=== PATIENT | male | born 1955 | race Caucasian/White ===

== ENCOUNTER 2018-03-28 19:31 | Inpatient (IN) | payer OTHER ==
[2018-03-28] MEDS ORDERED: ADENOSINE 0 ML (19:43)
[2018-03-28 19:52] LABS: ADD MAN DIFF? NO
[2018-03-28] MEDS: DILTIAZEM 50 MG INJ IV (19:53)
[2018-03-28 20:00] LABS: BASOPHILS % 0.5 % (0.0-2.0); EOSINOPHILS # 0.3 10^3/ul (0.0-0.5); EOSINOPHILS % 4.4 % (0.0-7.0); HEMATOCRIT 37.2 % (42.0-52.0); HEMOGLOBIN 12.6 g/dl (14.0-18.0); LYMPHOCYTES # 1.6 10^3/ul (0.8-2.9); MEAN CORPUSCULAR HGB CONC 33.9 g/dl (32.0-37.0); MEAN CORPUSCULAR VOLUME 88.6 fl (82.0-101.0); MEAN PLATELET VOLUME 9.2 fl (7.4-10.4); MONOCYTE # 0.7 10^3/ul (0.3-0.9); MONOCYTES % 10.9 % (0.0-11.0); NEUTROPHIL # 3.8 10^3/ul (1.6-7.5); NEUTROPHILS % 58.3 % (39.0-77.0); PLATELET COUNT 205 10^3/UL (140-415); RED CELL DISTRIBUTION WIDTH 12.9 % (11.5-14.5)
[2018-03-28 20:00] LABS: WHITE BLOOD COUNT 6.5 10^3/ul (4.8-10.8)
[2018-03-28] MEDS: DILTIAZEM-D5W 125MG/125ML DRIP 125 ML IV ×2 (20:11→20:15)
[2018-03-28 20:16] LABS: INR 1.01; PROTIME 13.4 Sec (11.9-14.9)
[2018-03-28 20:17] LABS: PARTIAL THROMBOPLASTIN TIME 30.9 Sec (25.0-35.0)
[2018-03-28 20:19] LABS: ALANINE AMINOTRANSFERASE 33 IU/L (13-69); ALBUMIN/GLOBULIN RATIO 1.21; ALKALINE PHOSPHATASE 59 IU/L (42-121); ANION GAP 16 (8-16); ASPARTATE AMINO TRANSFERASE 27 IU/L (15-46); BILIRUBIN,INDIRECT 0.2 mg/dl (0-1.1); BILIRUBIN,TOTAL 0.2 mg/dl (0.2-1.3); BLOOD UREA NITROGEN 25 mg/dl (7-20); CALCIUM 10.2 mg/dl (8.4-10.2); CARBON DIOXIDE 24 mmol/L (21-31); CHLORIDE 108 mmol/L (97-110); CREATININE 1.38 mg/dl (0.61-1.24); GLUCOSE 154 mg/dl (70-220); MAGNESIUM 1.4 mg/dl (1.7-2.5); POTASSIUM 4.3 mmol/L (3.5-5.1); SODIUM 144 mmol/L (135-144); TOTAL PROTEIN 7.3 g/dl (6.1-8.1)
[2018-03-28 20:31] LABS: B-TYPE NATRIURETIC PEPTIDE 3810 PG/ML (0-125); TROPONIN-I 0.036 ng/ml (0.00-0.12)
[2018-03-29] MEDS ORDERED: DILTIAZEM-D5W 125MG/125ML DRIP 125 ML IV
[2018-03-29] MEDS: DILTIAZEM 50 MG INJ IV (00:27)
[2018-03-29] MEDS ORDERED: NACL 0.9% 3 ML SYG IV (00:30)
[2018-03-29] MEDS ORDERED: GLUCOSE GEL 15 GRAM TUBE BUCCAL (00:30)
[2018-03-29] MEDS ORDERED: GLUCAGON 1 MG INJ IM (00:30)
[2018-03-29] MEDS ORDERED: BISACODYL (EC) 5 MG TAB PO (00:30)
[2018-03-29] MEDS ORDERED: GLUCOSE GEL 15 GRAM TUBE PO ×2 (00:30)
[2018-03-29] MEDS ORDERED: DOCUSATE SODIUM 100 MG CAP PO (00:30)
[2018-03-29] MEDS ORDERED: MAGNESIUM HYDROXIDE 30ML CUP PO (00:30)
[2018-03-29] MEDS ORDERED: DEXTROSE 50% 50 ML SYRINGE IV ×2 (00:30)
[2018-03-29] MEDS: MAGNESIUM SULFATE 1 GM/D5W 100 ML IVPB (00:46)
[2018-03-29 00:56] LABS: HEMOGLOBIN A1C 5.8 % (0-5.9)
[2018-03-29] MEDS: RIVAROXABAN 20 MG TABLET PO ×2 (01:25→20:33)
[2018-03-29] MEDS: ACCU-CHEK XX (02:50)
[2018-03-29 02:51] LABS: CREATINE KINASE 228 IU/L (23-200)
[2018-03-29 03:02] LABS: CK INDEX 1.5; TROPONIN-I 0.037 ng/ml (0.00-0.12)
[2018-03-29 03:15] LABS: CK-MB 3.49 ng/ml (0.0-2.4)
[2018-03-29] MEDS: INSULIN ASPART [NOVOLOG] 3 ML PEN SC ×4 (08:20→20:33)
[2018-03-29 09:18] LABS: CREATINE KINASE 194 IU/L (23-200)
[2018-03-29 09:30] LABS: CK INDEX 1.7; TROPONIN-I 0.032 ng/ml (0.00-0.12)
[2018-03-29 09:31] LABS: CK-MB 3.23 ng/ml (0.0-2.4)
[2018-03-29 09:40] LABS: FREE T4 (FREE THYROXINE) 0.82 ng/dl (0.78-2.44)
[2018-03-29] MEDS: LISINOPRIL 5 MG TAB PO (18:12)
[2018-03-29] MEDS: ATORVASTATIN 20 MG TAB PO (20:32)
[2018-03-30] MEDS: ACCU-CHEK XX (02:00)
[2018-03-30] MEDS: SPIRONOLACTONE 25 MG TAB PO (08:05)
[2018-03-30] MEDS: LISINOPRIL 5 MG TAB PO (08:06)
[2018-03-30] MEDS: INSULIN ASPART [NOVOLOG] 3 ML PEN SC ×3 (08:07→18:05)
[2018-03-30 09:24] LABS: ADD MAN DIFF? NO
[2018-03-30 09:35] LABS: BASOPHILS % 0.6 % (0.0-2.0); EOSINOPHILS # 0.3 10^3/ul (0.0-0.5); EOSINOPHILS % 6.7 % (0.0-7.0); HEMATOCRIT 40.1 % (42.0-52.0); HEMOGLOBIN 13.5 g/dl (14.0-18.0); LYMPHOCYTES % 20.2 % (15.0-51.0); MEAN CORPUSCULAR HEMOGLOBIN 29.7 pg (29.0-33.0); MEAN CORPUSCULAR HGB CONC 33.7 g/dl (32.0-37.0); MEAN CORPUSCULAR VOLUME 88.3 fl (82.0-101.0); MEAN PLATELET VOLUME 9.3 fl (7.4-10.4); MONOCYTE # 0.4 10^3/ul (0.3-0.9); MONOCYTES % 8.6 % (0.0-11.0); NEUTROPHIL # 3.2 10^3/ul (1.6-7.5); NEUTROPHILS % 63.5 % (39.0-77.0); PLATELET COUNT 201 10^3/UL (140-415); RED BLOOD COUNT 4.54 10^6/ul (4.70-6.10); RED CELL DISTRIBUTION WIDTH 12.9 % (11.5-14.5)
[2018-03-30 09:35] LABS: WHITE BLOOD COUNT 5.1 10^3/ul (4.8-10.8)
[2018-03-30 11:03] LABS: MAGNESIUM 1.6 mg/dl (1.7-2.5)
[2018-03-30 11:03] LABS: PHOSPHORUS 3.8 mg/dl (2.5-4.9)
[2018-03-30 11:08] LABS: ANION GAP 15 (8-16); BLOOD UREA NITROGEN 21 mg/dl (7-20); CALCIUM 9.6 mg/dl (8.4-10.2); CARBON DIOXIDE 27 mmol/L (21-31); CHLORIDE 104 mmol/L (97-110); CREATININE 1.05 mg/dl (0.61-1.24); GLUCOSE 143 mg/dl (70-220); POTASSIUM 4.7 mmol/L (3.5-5.1); SODIUM 141 mmol/L (135-144)
[2018-03-30] MEDS: MAGNESIUM SULFATE 2 GM/50 ML 50 ML IVPB (14:58)
[2018-03-30] MEDS: RIVAROXABAN 20 MG TABLET PO (18:08)
[2018-03-30] MEDS: ATORVASTATIN 20 MG TAB PO (18:54)
== END 2018-03-30 19:15 | disposition home or self-care (01) | DRG 309 ==
LOC: MS4 03-29 00:46 → E/R 19:31
DX: I47.1 Supraventricular tachycardia (principal); I42.9 Cardiomyopathy, unspecified; N17.9 Acute kidney failure, unspecified; R55 Syncope and collapse; E11.9 Type 2 diabetes mellitus without complications; E66.9 Obesity, unspecified; Z68.35 Body mass index [BMI] 35.0-35.9, adult; Z91.14 Patient's other noncompliance with medication regimen; I48.91 Unspecified atrial fibrillation; R42 Dizziness and giddiness; R94.31 Abnormal electrocardiogram [ECG] [EKG]; I50.9 Heart failure, unspecified; I12.9 Hypertensive chronic kidney disease with stage 1 through stage 4 chronic kidney disease, or unspecified chronic kidney disease; N18.9 Chronic kidney disease, unspecified
CPT/HCPCS: 36415; 71045; 80048; 80053; 82550; 82553; 82962; 83036; 83735; 83880; 84100; 84436; 84439; 84443; 84484; 85025; 85610; 85730; 87081; 93005; 93306; 96374; 96375; 96376; 99291-25